=== PATIENT | male | born 1985 | race Asian ===

== ENCOUNTER 2022-03-03 08:00 | Outpatient (CLI) | payer OTHER ==
--- NOTE | 2022-03-03 16:57 | XRAY Report ---
PROCEDURE: Foot 3 View LT INDICATIONS: LEFT FOOT PAIN TECHNIQUE: 3 views of the foot were acquired. COMPARISON: None FINDINGS: Bones: No acute fractures or dislocations. No suspicious bony lesions. Soft tissues: No tibiotalar joint effusion. Achilles tendon appears normal. IMPRESSION: Left foot without acute fracture or dislocation. If there is persistent clinical concern for a radiographically occult fracture, consider immobilizati on and repeat imaging in 10 to 14 days. Reviewed by: Lukas Ernandez MD on 03/03/2022 4:56 PM PDT Approved by: Lukas Ernandez MD on 03/03/2022 4:56 PM PDT Station ID: [id number]
== END 2022-03-03 08:01 | disposition home or self-care (01) ==
LOC: DI.S 08:00
PROVIDERS: ATTEND Physician Assistant
DX: M79.672 Pain in left foot (principal)